=== PATIENT | female | born 1955 | race Caucasian/White ===

== ENCOUNTER 2018-12-20 15:48 | Inpatient (IN) | payer OTHER, SELFPAY ==
[2018-12-20 17:40] LABS: #Lymphocytes 0.5 thou/uL (1.20-3.40); #Monocytes 0.2 thou/uL (0.11-0.59); #Neutrophils 5.8 thou/uL (1.40-6.50); %Basophils 0.1 % (0.0-1.0); %Eosinophils 0.2 % (0.0-10.0); %Lymphocytes 7.7 % (21.0-51.0); Hemoglobin 17.1 g/dL (12.0-16.0); Mean Corpuscular HGB CONC 32.7 g/dL (32.0-36.0); Mean Corpuscular Hemoglobin 34.6 pg (27.0-31.0); Mean Platelet Volume 7.7 fL (7.4-10.4); Platelet Count 172 thou/uL (130-400); Red Blood Cell (RBC) Count 4.94 mill/uL (4.20-5.40); White Blood Cell (WBC) Count 6.5 thou/uL (4.8-10.8)
[2018-12-20 18:03] LABS: ALT (SGPT) 37 U/L (8-55); AST (SGOT) 58 U/L (5-34); Alkaline Phosphatase 96 U/L (40-110); Anion Gap 21 mmol/L (10-20); BUN (Urea Nitrogen) 19 mg/dL (9.8-20.1); Bilirubin, Total 2.3 mg/dL (0.2-1.2); Calc. Creatinine Clearance 0 mL/min (70-130); Calcium 9.4 mg/dL (7.8-10.44); Carbon Dioxide 18 mmol/L (23-31); Chloride 96 mmol/L (98-107); Estimated GFR-MDRD 43; Globulin 3.6 g/dL (2.4-3.5); Glucose 115 mg/dL (80-115); Magnesium 1.8 mg/dL (1.6-2.6); Potassium 4.9 mmol/L (3.5-5.1); Protein, Total 7.6 g/dL (6.0-8.3); Sodium 130 mmol/L (136-145)
[2018-12-20 18:28] LABS: CKMB 6.1 ng/mL (0-6.6)
[2018-12-20] MEDS ORDERED: Calcium Carbonate 500 MG ChewTAB PO PRN (19:30)
[2018-12-20] MEDS ORDERED: Ondansetron ODT 4 MG TAB PO PRN (19:30)
[2018-12-20] MEDS ORDERED: Ondansetron PF 4 MG/2 ML Vial IVP PRN (19:30)
--- NOTE | 2018-12-20 20:04 | HP ---
PRIMARY CARE PHYSICIAN: None. CHIEF COMPLAINT: Shortness of breath. The patient is a transfer from [facility]. HISTORY OF PRESENT ILLNESS: The patient is a 63-year-old female with hypertension, alcoholism, and noncompliance presented to [facility] with shortness of breath. The shortness of breath has been ongoing for past few weeks. She also noticed significant abdominal distention along with bilateral lower extremity swelling. She was unable to lie down flat. She also had some cough, which was essentially dry. No chest pain, palpitations, lightheadedness, dizziness, or syncope reported. Her symptoms progressively got worse over the last 2 to 4 weeks. The patient was admitted at [facility] as observation. There are no records from [facility]. However, was told by the ER physician that she was found to have atrial fibrillation for which she was started on apixaban. She was also started on IV Bumex for shortness of breath. No other records available from [facility]. The patient was sent to the emergency room from the hospital. Please note that patient was admitted at that facility as observation. PAST MEDICAL HISTORY: Hypertension. She does not take any medications. She used to be on antihypertensives in the past. PAST SURGICAL HISTORY: 1. Right knee surgery after a skiing accident. 2. Bunion surgery. ALLERGIES: THE PATIENT IS ALLERGIC TO PROCAINE. CURRENT HOME MEDICATIONS: Reviewed with the patient and none. The patient received apixaban, aspirin, Bumex, metoprolol, potassium, lactulose, folic acid at the [facility]. SOCIAL HISTORY: The patient currently lives at home with her family. She denies any drug use. She smokes one pack a day. She drinks 2 mixed drinks every night. FAMILY HISTORY: Negative for premature coronary artery disease. REVIEW OF SYSTEMS: All other review of systems was reviewed and was found negative. PHYSICAL EXAMINATION: VITAL SIGNS: Temperature 97.7, respirations of 26, pulse rate of 90 with a blood pressure of 130/98 with O2 saturation 93% on room air. GENERAL: A 63-year-old female in minimal respiratory distress at rest. HEENT: Head; atraumatic and normocephalic. Sclerae anicteric. Moist mucous membranes. No oral lesion. NECK: Supple. JVD not appreciated due to body habitus. No carotid bruit. LUNGS: Show diminished air entry at bilateral bases with rales at bases. There is expiratory wheezing with minimal accessory muscle use. HEART: S1 and S2 present. Irregularly irregular. 2/6 systolic murmur over the mitral area. ABDOMEN: Tense. Bowel sounds present. Distended. No guarding or rigidity. There was shifting dullness. EXTREMITIES: 3+ edema in bilateral lower extremity. No calf tenderness. SKIN: Warm and dry. LYMPH NODES: No palpable lymph nodes in the neck. PERIPHERAL VASCULAR: Radial pulses palpable bilaterally. MUSCULOSKELETAL: No joint swelling tenderness. NEUROLOGIC: Grossly nonfocal. Moves all 4 extremities. PSYCHIATRY: Alert, awake, oriented x3. LABORATORY FINDINGS: EKG by my review showed atrial fibrillation with nonspecific ST-T wave changes. CBC showed WBC 6.5 with hemoglobin 17.1, hematocrit 52.2, platelet 172. Chemistry showed sodium 130, potassium 4.9, chloride 96, bicarb 18, BUN 19, creatinine 1.25, total bilirubin 2.3. Troponin of 0.058. BNP of 1774. No chest x-ray available from [facility]. IMPRESSION: 1. Congestive heart failure, new onset with exacerbation along with new-onset atrial fibrillation. 2. Symptomatic ascites, suspected to be secondary to #1, rule out cirrhosis. 3. Chronic alcoholism with abnormal LFTs. 4. Chronic kidney disease, stage 3 versus acute kidney injury. 5. Hyponatremia. 6. Macrocytosis. 7. Suspected sleep apnea. 8. Tobacco dependence. 9. Elevated troponin secondary to congestive heart failure/type 2 myocardial infarction. 10. Hypertension, noncompliant with medications. PLAN: The patient will be monitored on the telemetry unit. We will start her on Lovenox 1 mg b.i.d. We will add fluid restriction. We will get ultrasound of the abdomen. IV diuretics. Echocardiogram will be obtained. We will consult cardiac rehab. Nebulizer treatment as needed. Plan of care was discussed with the patient in detail. She stated understanding. Job ID: [id number] MTDD
[2018-12-20] MEDS: Carvedilol 6.25 MG TAB PO SCH (21:28)
[2018-12-20] MEDS: Atorvastatin Calcium 10 MG TAB PO SCH (21:28)
[2018-12-20] MEDS: Senokot S 8.6-50 MG TAB PO SCH (21:31)
[2018-12-20] MEDS: Furosemide 40 MG/4 ML VIAL SLOW IVP SCH (21:31)
[2018-12-20 21:36] VITALS: BMI 34.4
[2018-12-20] MEDS: Enoxaparin Sodium 120 MG/0.8 ML SYRINGE SC SCH (22:36)
[2018-12-20] MEDS: Famotidine 20 MG TAB PO SCH (22:36)
[2018-12-21] MEDS: Furosemide 40 MG/4 ML VIAL SLOW IVP SCH ×2 (05:12→15:13)
[2018-12-21 06:25] LABS: Hemoglobin A1c 6.2 % (4.0-6.0)
[2018-12-21 06:48] LABS: ALT (SGPT) 34 U/L (8-55); AST (SGOT) 46 U/L (5-34); Albumin 3.6 g/dL (3.4-4.8); Alkaline Phosphatase 81 U/L (40-110); Anion Gap 16 mmol/L (10-20); BUN (Urea Nitrogen) 22 mg/dL (9.8-20.1); Calc. Creatinine Clearance 84 mL/min (70-130); Carbon Dioxide 25 mmol/L (23-31); Cardiac Risk 5.2 (Less than 4.5); Chloride 95 mmol/L (98-107); Cholesterol 103 mg/dl (< 200 Desired); Estimated GFR-MDRD 45; Globulin 3.2 g/dL (2.4-3.5); Glucose 97 mg/dL (80-115); HDL Cholesterol 20 mg/dL (>60 Neg Risk); LDL Cholesterol, Calculated 70 mg/dL; Magnesium 1.8 mg/dL (1.6-2.6); Phosphorus 4.8 mg/dL (2.3-4.7); Potassium 4.4 mmol/L (3.5-5.1); Protein, Total 6.8 g/dL (6.0-8.3); Sodium 132 mmol/L (136-145); Triglycerides 66 mg/dL (Less than 150)
[2018-12-21 06:57] LABS: Digoxin Less than 0.15 ng/mL (0.8-2.0)
--- NOTE | 2018-12-21 08:33 | RAD ---
PA AND LATERAL CHEST: HISTORY: Shortness of breath and CHF. COMPARISON: Exam from the previous day. FINDINGS: The heart is enlarged. Bilateral pleural effusions, left greater than right, are again seen. Mild pro minence of the pulmonary vascularity is noted. No pneumothoraces are seen. IMPRESSION: Stable examination. POS: MADDIE
[2018-12-21] MEDS: Aspirin 81 mg Enteric Coated Tablet PO SCH (08:57)
[2018-12-21] MEDS: Carvedilol 6.25 MG TAB PO SCH ×2 (08:57→22:28)
[2018-12-21] MEDS: Famotidine 20 MG TAB PO SCH ×2 (08:58→22:29)
[2018-12-21] MEDS: Lisinopril 5 MG TAB PO SCH (08:58)
[2018-12-21] MEDS: Senokot S 8.6-50 MG TAB PO SCH ×2 (08:59→22:28)
--- NOTE | 2018-12-21 09:08 | ULT ---
ABDOMINAL ULTRASOUND COMPLETE: Date: 12/21/18 HISTORY: Ascites and elevated LFTs. FINDINGS: Liver echogenicity is very coarse with a nodular appearing liver raising concern for cirrhosis. Exten sive gallstones and shadowing debris within the gallbladder, with gallbladder wall thickening. Primar jenny right upper quadrant minimal ascites. Bilateral pleural effusions. No focal liver mass. Visualize d pancreas, IVC, aorta, and spleen are unremarkable. The kidneys are unremarkable without hydronephro sis. IMPRESSION: 1. Very abnormal liver echotexture with some nodularity. 2. Multiple shadowing stones within the gallbladder with minimal gallbladder wall thickening, which could potentially be related to the ascites. Negative Cancino's sign. Common bile duct 0.4 cm. 3. Small bilateral pleural effusions. POS: TPC
[2018-12-21] MEDS: Multivit, Therapeutic 1 TAB PO SCH (11:00)
[2018-12-21] MEDS: Folic Acid 1 MG TAB PO SCH (11:00)
[2018-12-21] MEDS: Thiamine 100 MG TAB PO SCH (11:00)
[2018-12-21] MEDS: Enoxaparin Sodium 120 MG/0.8 ML SYRINGE SC SCH ×2 (12:00→22:30)
--- NOTE | 2018-12-21 12:09 | PDOC.HOSPP ---
- Subjective Encounter Date: 12/21/18 Encounter Time: 10:30 Subjective: Patient seen and examined for new onset CHF. SOB same. No CP or palpitations. No other complaints. No overnight events - Objective Vital Signs & Weight: Vital Signs (12 hours) Temp Pulse Resp BP BP Pulse Ox 12/21/18 08:58 88 110/75 12/21/18 08:57 110/75 12/21/18 08:35 97.2 F L 74 22 H 105/80 98 12/21/18 04:09 97.3 F L 88 18 110/75 99 Weight Weight 246 lb 4.8 oz I&O: 12/20/18 12/21/18 12/22/18 06:59 06:59 06:59 Intake Total 450 Output Total 950 Balance -500 Result Diagrams: 12/20/18 17:20 12/21/18 05:17 Radiology Reviewed by me: Yes (CXR - Pleural effusion) EKG Reviewed by me: Yes (Tele Afib) Hospitalist ROS - Review of Systems Constitutional: denies: fever, chills, sweats, weakness, malaise, other Gastrointestinal: denies: nausea, vomiting, abdominal pain, diarrhea, constipation, melena, hematochezia, other - Medication Medications: Active Medications Generic Name Dose Route Start Last Admin Trade Name Freq PRN Reason Stop Dose Admin Aspirin 81 mg 12/21/18 09:00 12/21/18 08:57 Ecotrin PO 81 mg DAILY ERIN Administration Atorvastatin Calcium 10 mg 12/20/18 21:00 12/20/18 21:28 Lipitor PO 10 mg HS ERIN Administration Carvedilol 6.25 mg 12/20/18 21:00 12/21/18 08:57 Coreg PO 6.25 mg BID ERIN Administration Enoxaparin Sodium 110 mg 12/20/18 22:00 12/20/18 22:36 Lovenox SC 110 mg 1000,2200 ERIN Administration Famotidine 20 mg 12/20/18 21:00 12/21/18 08:58 Pepcid PO 20 mg BID ERIN Administration Furosemide 40 mg 12/20/18 22:00 12/21/18 05:12 Lasix SLOW IVP 40 mg Q8HR ERIN Administration Lisinopril 5 mg 12/21/18 09:00 12/21/18 08:58 Zestril PO 5 mg DAILY ERIN Administration Senna/Docusate Sodium 2 tab 12/20/18 21:00 12/21/18 08:59 Senokot S PO 2 tab BID ERIN Administration Sodium Chloride 10 ml 12/20/18 19:30 12/21/18 05:12 Flush - Normal Saline IVF 10 ml PRN PRN Administration Saline Flush - Exam General Appearance: NAD (at rest) Heart: no gallops, no rubs, irregular Heart - other findings: no heaves/pulsations Respiratory: normal chest expansion, rales, rhonchi Respiratory - other findings: dec AE at bases Gastrointestinal: soft, no guarding, no rigidity, distended Extremities: no cyanosis, 2+ LE edema Hosp A/P - Plan IMPRESSION: 1.New onset CHF exacerbation/new-onset A fib. 2. Symptomatic ascites, suspected to be secondary to #1, rule out cirrhosis. 3. Chronic alcoholism with abnormal LFTs. 4. CKD 3. 5. Hyponatremia. 6. Macrocytosis. 7. Suspected sleep apnea. 8. Tobacco dependence. 9. Elevated troponin secondary to congestive heart failure/type 2 [place]. 10. Hypertension, noncompliant with medications. PLAN: Cont IV diuretics Cont Lovenox Await Echo and Abd USG Cont Coreg Cont Lisinopril AM labs
--- NOTE | 2018-12-21 18:49 | CON ---
DATE OF CONSULTATION: 12/21/2018 REASON FOR CONSULTATION: Heart failure. HISTORY OF PRESENT ILLNESS: Ms. Peralta is a pleasant 63-year-old white female who comes to the hospital for shortness of breath. She states that for the last 4 weeks, she has been progressively getting more short-winded, to the point where she could not even lay flat, she could not breathe well even at rest. She decided to come in and was found to be in heart failure with ascites, lower extremity edema, and crackles. She was given IV Lasix and is already feeling much better. Still cannot lay flat on her back without feeling short-winded, but can get much flatter than before and feels more comfortable. She denies any chest pain, tightness, or pressure. She comes from the [facility]. Apparently, she was given a dose of apixaban as she has been in atrial fibrillation as well. She has never been told she has any heart problems in the past. She has never been told she has atrial fibrillation either. PAST MEDICAL HISTORY: Includes; 1. Hypertension. 2. Noncompliance. She states she was given blood pressure medication several years ago. She took them for a few months and then she states that the blood pressure has been high and low, so she has decided to stop taking them. When she says high, she means in the 170s and 180s and when she says low, she means in the 140s. PAST SURGICAL HISTORY: 1. Right knee surgery. 2. Bunionectomy. OUTPATIENT MEDICATIONS: None. MEDICATIONS GIVEN: At the [facility], include: 1. Eliquis. 2. Aspirin. 3. Bumex. 4. Metoprolol. 5. Potassium. 6. Lactulose. 7. Folic acid. ALLERGIES: PROCAINE. SOCIAL HISTORY: She smokes a pack a day, and she drinks 2 mixed drinks every evening. No drug use. FAMILY HISTORY: No early coronary artery disease. REVIEW OF SYSTEMS: A 12-point review of systems was done and was all negative unless stated in the History of Present Illness. PHYSICAL EXAMINATION: VITAL SIGNS: Temperature 97.7, pulse 84, respiratory rate 19, saturation is 93% on 2 L, and blood pressure 112/76. GENERAL: Awake, alert, and oriented x3. No distress. HEENT: Normocephalic, atraumatic. NECK: Supple. LUNGS: Clear. CARDIOVASCULAR: S1 and S2. No S3 or S4. There is a grade 2/6 systolic murmur at the right upper sternal border. ABDOMEN: Soft. EXTREMITIES: 2+ edema. SKIN: Warm and dry. LABORATORY DATA: Laboratory work was reviewed. CBC with a white count of 6, hemoglobin of 17, hematocrit of 52, and platelet count of 172. Chemistries with a sodium of 132, potassium of 4.4, BUN 22, creatinine 1.22, GFR of 45. Hemoglobin A1c is 6.2, phosphorus of 4.8, total bilirubin at 2.0, AST of 46, ALT of 34. Troponin was 0.05, it is in the indeterminate range. BNP was 1774. Albumin of 3.6. TSH was normal. Triglycerides of 66, cholesterol 103, LDL of 70, HDL of 20. Digoxin level was undetectable. Chest x-ray was reviewed. ASSESSMENT: 1. Acute on chronic systolic heart failure. 2. New onset dilated cardiomyopathy. 3. Ejection fraction of left ventricular systolic function at 20% to 25%, with 4-chamber dilatation. 4. Atrial fibrillation, rate controlled, new diagnosis. 5. Tobacco and alcohol use. PLAN: 1. Continues to be volume overloaded, unable to lay flat for too long. 2. We will need continued IV diuresis for now. 3. If her creatinine starts to go up, we will need to be in imminent top of this to try to help forward flow. 4. She will need a heart catheterization in the next few days. She received a dose of Eliquis yesterday, so she would be ready by Wednesday. However, most likely, we will do this on Wednesday, try to dry her up a little bit more in the next couple of days. 5. Once her blood pressure allows, we will plan on starting Entresto and beta-jairo. Currently, blood pressure is borderline low. Thank you for letting us to participate in the care of your patient. We will follow. Job ID: [id number]
[2018-12-21] MEDS: Atorvastatin Calcium 10 MG TAB PO SCH (22:29)
[2018-12-22 05:02] LABS: #Basophils 0.1 thou/uL (0.0-0.2); #Monocytes 0.5 thou/uL (0.11-0.59); %Basophils 1.1 % (0.0-1.0); %Eosinophils 0.1 % (0.0-10.0); %Lymphocytes 21.5 % (21.0-51.0); %Monocytes 11.6 % (0.0-10.0); %Neutrophils 65.7 % (42.0-75.0); Hemoglobin 15.3 g/dL (12.0-16.0); Mean Corpuscular HGB CONC 33.1 g/dL (32.0-36.0); Mean Corpuscular Hemoglobin 35.5 pg (27.0-31.0); Mean Platelet Volume 7.5 fL (7.4-10.4); Platelet Count 146 thou/uL (130-400); RBC Distribution Width 13.6 % (11.5-14.5); White Blood Cell (WBC) Count 4.6 thou/uL (4.8-10.8)
[2018-12-22 05:27] LABS: ALT (SGPT) 36 U/L (8-55); AST (SGOT) 41 U/L (5-34); Albumin 3.2 g/dL (3.4-4.8); Alkaline Phosphatase 68 U/L (40-110); Anion Gap 14 mmol/L (10-20); BUN (Urea Nitrogen) 26 mg/dL (9.8-20.1); Bilirubin, Total 1.7 mg/dL (0.2-1.2); Calc. Creatinine Clearance 91 mL/min (70-130); Calcium 8.6 mg/dL (7.8-10.44); Carbon Dioxide 27 mmol/L (23-31); Chloride 95 mmol/L (98-107); Estimated GFR-MDRD 49; Globulin 3.2 g/dL (2.4-3.5); Glucose 79 mg/dL (80-115); Potassium 3.9 mmol/L (3.5-5.1); Protein, Total 6.4 g/dL (6.0-8.3); Sodium 132 mmol/L (136-145)
[2018-12-22] MEDS: Furosemide 40 MG/4 ML VIAL SLOW IVP SCH ×2 (05:42→14:07)
[2018-12-22] MEDS: Aspirin 81 mg Enteric Coated Tablet PO SCH (08:27)
[2018-12-22] MEDS: Carvedilol 6.25 MG TAB PO SCH ×2 (08:27→20:57)
[2018-12-22] MEDS: Lisinopril 5 MG TAB PO SCH (08:28)
[2018-12-22] MEDS: Folic Acid 1 MG TAB PO SCH (08:28)
[2018-12-22] MEDS: Famotidine 20 MG TAB PO SCH ×2 (08:28→20:58)
[2018-12-22] MEDS: Multivit, Therapeutic 1 TAB PO SCH (08:28)
[2018-12-22] MEDS: Thiamine 100 MG TAB PO SCH (08:29)
[2018-12-22] MEDS: Senokot S 8.6-50 MG TAB PO SCH ×2 (08:29→20:58)
[2018-12-22] MEDS: Enoxaparin Sodium 120 MG/0.8 ML SYRINGE SC SCH ×2 (09:57→20:58)
--- NOTE | 2018-12-22 15:52 | PRG ---
DATE OF SERVICE: 12/22/2018 SUBJECTIVE: The patient is seen and examined at the bedside. She is in feeling significantly better, although still tired and having some shortness of breath. OBJECTIVE: VITAL SIGNS: Blood pressure is 105/74, pulse is 73, temperature 97.9, respirations 16, O2 saturation is 93% on 2 L by nasal cannula. HEENT: Head is atraumatic and normocephalic. Eyes are PERRLA. Sclerae are nonicteric. Oral mucosa is moist. NECK: Supple. LUNGS: Breath sounds diminished at both bases with dullness on percussion at both bases. HEART: S1, S2, somewhat distant. No S3. No S4. Somewhat irregular. ABDOMEN: Obese, nontender. EXTREMITIES: 2+ peripheral edema similar bilaterally. NEUROLOGICAL EXAMINATION: She is alert and oriented x4. There is no any motor deficits. LABORATORY DATA: Labs showed white count of 4.6, hemoglobin 15.3, hematocrit 46.1, platelet count is 146,000. Sodium is 132, potassium 3.9, chloride 95, CO2 26, creatinine 1.13, total bilirubin 1.7, AST 41, ALT 36, alkaline phosphatase 68, albumin 3.2. The rest of chemistry is within normal limits. Echocardiogram showed LVEF estimated at 20% to 25% with global hypokinesis, dilated RV with reduced RV systolic function, moderately dilated left atrium, moderately enlarged right atrium, moderate to severe mitral regurgitation, dilated aortic root at 4, and small pericardial effusion without tamponade. IMPRESSION: 1. New onset congestive heart failure exacerbation with new onset of atrial fibrillation. 2. Symptomatic ascites, rule out cirrhosis. 3. Hyponatremia, most likely related to congestive heart failure. 4. Sleep apnea, on CPAP at home. 5. Tobacco dependence. 6. Chronic alcoholism. 7. Hypertension. 8. Chronic kidney disease, stage 3. 9. Myocardial infarction type 2. PLAN: Continue current regimen, which includes IV Lasix, carvedilol, full dose of Lovenox 1 mg/kg subcutaneously every 12 hours; ROSY inhibitor, which is lisinopril; statin, which is Lipitor, and aspirin. Job ID: [id number]
--- NOTE | 2018-12-22 18:53 | PDOC.CPN ---
- Subjective Date: 12/22/18 Time: 18:50 Interval history: She is diuresing well. She is breathing better but still unable to lay flat for longer than 10 or 15 minutes. - Review of Systems General: denies: fever/chills, weight/appetite/sleep changes, night sweats, fatigue Respiratory: reports: shortness of breath. denies: cough, congestion, exercise intolerance Cardiovascular: reports: edema. denies: chest pain, palpitation, paroxysmal nocturnal dyspnea, orthopnea Gastrointestinal: denies: nausea, vomiting, diarrhea, constipation, abd pain, GI bleeding Musculoskeletal: denies: pain, tenderness, stiffness, swelling, arthritis/ arthralgias Neurological: denies: numbness, syncope, seizure, weakness - Objective Allergies/Adverse Reactions: Allergies Allergy/AdvReac Type Severity Reaction Status Date / Time procaine [From Novocain] Allergy Severe Swollen Verified 12/20/18 20:07 Lips Visit Medications: Current Medications Albuterol/Ipratropium (Duoneb) 3 ml NEB Q4H PRN PRN Reason: SOB &/or Wheezing Aspirin (Ecotrin) 81 mg PO DAILY [facility] Last Admin: 12/22/18 08:27 Dose: 81 mg Atorvastatin Calcium (Lipitor) 10 mg PO HS [facility] Last Admin: 12/21/18 22:29 Dose: 10 mg Calcium Carbonate (Tums) 1,000 mg PO Q4H PRN PRN Reason: Heartburn or Indigestion Carvedilol (Coreg) 6.25 mg PO BID [facility] Last Admin: 12/22/18 08:27 Dose: 6.25 mg Enoxaparin Sodium (Lovenox) 110 mg SC 1000,2200 [facility] Last Admin: 12/22/18 09:57 Dose: 110 mg Famotidine (Pepcid) 20 mg PO BID [facility] Last Admin: 12/22/18 08:28 Dose: 20 mg Folic Acid (Folvite) 1 mg PO DAILY [facility] Last Admin: 12/22/18 08:28 Dose: 1 mg Furosemide (Lasix) 40 mg SLOW IVP 0600,1400 [facility] Last Admin: 12/22/18 14:07 Dose: 40 mg Lisinopril (Zestril) 5 mg PO DAILY [facility] Last Admin: 12/22/18 08:28 Dose: 5 mg Multivitamins (Theragran) 1 tab PO DAILY [facility] Last Admin: 12/22/18 08:28 Dose: 1 tab Ondansetron HCl (Zofran Odt) 4 mg PO Q6H PRN PRN Reason: Nausea/Vomiting Ondansetron HCl (Zofran) 4 mg IVP Q6H PRN PRN Reason: Nausea/Vomiting Senna/Docusate Sodium (Senokot S) 2 tab PO BID [facility] Last Admin: 12/22/18 08:29 Dose: 2 tab Sodium Chloride (Flush - Normal Saline) 10 ml IVF PRN PRN PRN Reason: Saline Flush Last Admin: 12/21/18 05:12 Dose: 10 ml Thiamine HCl (Thiamine) 100 mg PO DAILY [facility] Last Admin: 12/22/18 08:29 Dose: 100 mg Vital Signs & Weight: Vital Signs Temp Pulse Pulse Pulse Resp BP BP 12/22/18 15:05 97.0 F L 77 16 12/22/18 11:23 63 76 105/74 137/72 12/22/18 11:10 97.9 F 73 16 12/22/18 07:30 97.8 F 61 16 BP BP Pulse Ox Pulse Ox Pulse Ox 12/22/18 15:05 98/67 92 L 12/22/18 11:23 95 100 12/22/18 11:10 105/74 93 L 12/22/18 07:30 117/94 H 98 Weight 244 lb 6.4 oz - Physical Exam General: alert & oriented x3, no apparent distress HEENT: mucus membranes moist Neck: supple neck, JVD/HJR Cardiac: regular rate and rhythm, no murmur Lungs: bibasilar rales Neuro: grossly intact Abdomen: active bowel sounds, soft, non-tender Extremities: no cyanosis, no clubbing, 1+ LE edema Skin: clear Musculoskeletal: no pain - Labs Result Diagrams: 12/22/18 04:41 12/22/18 04:41 Troponin/CKMB CK-MB (CK-2) 6.1 ng/mL (0-6.6) 12/20/18 17:19 Troponin I 0.058 ng/mL (< 0.028) H 12/20/18 17:19 - Telemetry Sinus rhythms and dysrhythmias: sinus rhythm - Assessment/Plan Assessment/Plan: 1. Acute systolic heart failure 2. Dilated CM new onset, EF at 20-25% 3. Afib rate controlled, new diagnosis 4. Tobacco use. 5. CHADS VASc score of 2 (female, heart failure) PLAN: - Counselled on cessation of both alcohol and tobacco. - Continue diuresis. - Plan on doing LHC once able to lay flat. Likely wednesday. - Continue full dose lovenox for stroke prophylaxis. - Continue BB and ACEI. Cannot up titrate due to borderline low BP.
[2018-12-22] MEDS: Atorvastatin Calcium 10 MG TAB PO SCH (20:58)
[2018-12-23] MEDS: Furosemide 40 MG/4 ML VIAL SLOW IVP SCH ×2 (05:17→13:43)
[2018-12-23] MEDS: Carvedilol 6.25 MG TAB PO SCH ×2 (09:42→20:45)
[2018-12-23] MEDS: Aspirin 81 mg Enteric Coated Tablet PO SCH (09:42)
[2018-12-23] MEDS: Famotidine 20 MG TAB PO SCH ×2 (09:43→20:46)
[2018-12-23] MEDS: Lisinopril 5 MG TAB PO SCH (09:43)
[2018-12-23] MEDS: Folic Acid 1 MG TAB PO SCH (09:43)
[2018-12-23] MEDS: Multivit, Therapeutic 1 TAB PO SCH (09:44)
[2018-12-23] MEDS: Thiamine 100 MG TAB PO SCH (09:44)
[2018-12-23] MEDS: Senokot S 8.6-50 MG TAB PO SCH ×2 (09:44→09:45)
[2018-12-23] MEDS: Enoxaparin Sodium 120 MG/0.8 ML SYRINGE SC SCH ×2 (09:46→20:46)
--- NOTE | 2018-12-23 10:59 | PRG ---
DATE OF SERVICE: 12/23/2018 SUBJECTIVE: The patient is seen and examined at the bedside. The patient's friend and her are present in the room during my visit. She feels significantly better. OBJECTIVE: VITAL SIGNS: Blood pressure is 108/62, pulse is 82, respiratory rate is 18, O2 saturation is 96% on 2 L by nasal cannula, and her temperature is 98. HEENT: Head is atraumatic and normocephalic. Eyes, noticed some bulge bilaterally and conjunctivae pinkish. Oral mucosa is moist. NECK: Supple. LUNGS: Breath sounds diminished with bilateral crackles at both bases. HEART: S1-S2, normal. No S3. No S4. Irregularly irregular. ABDOMEN: Soft, nontender, and obese. EXTREMITIES: 1 to 2+ peripheral edema similar bilaterally on both lower extremities. NEUROLOGICAL: She is alert and oriented x4. There is no any motor or sensory deficits present. Cranial nerves are intact. LABORATORY DATA: Pending. IMPRESSION: 1. New onset atrial fibrillation with rapid ventricular rate, rate controlled at this point. 2. Symptomatic ascites, rule out cirrhosis. 3. Hyponatremia, most likely related to congestive heart failure. 4. Congestive heart failure, most likely systolic and diastolic. 5. Sleep apnea, on CPAP at night. 6. Tobacco dependence. 7. Chronic alcoholism. 8. Hypertension. 9. Chronic kidney disease stage 3. 10. Myocardial infarction type 2. 11. Suspicion of hyperparathyroidism. PLAN: Check her free T3 and free T4. Continue IV diuretics. Continue ROSY inhibitor and beta-jairo. Continue statin and aspirin. Continue full dose of Lovenox, and she is responding well to diuresis. She should be ready for cardiac catheterization on Wednesday. Job ID: [id number]
[2018-12-23 11:43] LABS: Anion Gap 14 mmol/L (10-20); BUN (Urea Nitrogen) 19 mg/dL (9.8-20.1); Calc. Creatinine Clearance 105 mL/min (70-130); Calcium 9.3 mg/dL (7.8-10.44); Carbon Dioxide 32 mmol/L (23-31); Chloride 92 mmol/L (98-107); Estimated GFR-MDRD 60; Glucose 107 mg/dL (80-115); Magnesium 1.7 mg/dL (1.6-2.6); Potassium 3.9 mmol/L (3.5-5.1); Sodium 134 mmol/L (136-145)
[2018-12-23 12:10] LABS: Free T4 (Free Thyroxine) 0.77 ng/dL (0.70-1.48)
[2018-12-23] MEDS: Atorvastatin Calcium 10 MG TAB PO SCH (20:46)
[2018-12-24] MEDS: Furosemide 40 MG/4 ML VIAL SLOW IVP SCH ×2 (05:09→14:41)
[2018-12-24 06:15] LABS: Anion Gap 15 mmol/L (10-20); BUN (Urea Nitrogen) 11 mg/dL (9.8-20.1); Calc. Creatinine Clearance 110 mL/min (70-130); Calcium 8.9 mg/dL (7.8-10.44); Carbon Dioxide 29 mmol/L (23-31); Chloride 93 mmol/L (98-107); Estimated GFR-MDRD 63; Glucose 81 mg/dL (80-115); Potassium 5.2 mmol/L (3.5-5.1); Sodium 132 mmol/L (136-145)
[2018-12-24] MEDS: Famotidine 20 MG TAB PO SCH ×2 (09:15→20:17)
[2018-12-24] MEDS: Lisinopril 5 MG TAB PO SCH (09:15)
[2018-12-24] MEDS: Senokot S 8.6-50 MG TAB PO SCH ×2 (09:16→20:17)
[2018-12-24] MEDS: Folic Acid 1 MG TAB PO SCH (09:17)
[2018-12-24] MEDS: Multivit, Therapeutic 1 TAB PO SCH (09:17)
[2018-12-24] MEDS: Carvedilol 6.25 MG TAB PO SCH ×2 (09:17→20:15)
[2018-12-24] MEDS: Thiamine 100 MG TAB PO SCH (09:17)
[2018-12-24] MEDS: Aspirin 81 mg Enteric Coated Tablet PO SCH (09:17)
[2018-12-24] MEDS: Enoxaparin Sodium 120 MG/0.8 ML SYRINGE SC SCH ×2 (09:22→20:15)
--- NOTE | 2018-12-24 12:48 | PRG ---
DATE OF SERVICE: 12/24/2018 SUBJECTIVE: Patient is seen and examined at the bedside. She is feeling significantly better. She is able to sleep and lie flat in the bed. Shortness of breath improved. OBJECTIVE: VITAL SIGNS: Blood pressure is 111/82, pulse is 75, temperature 98.1, respirations 14, O2 saturation is 96% on room air. Her urine output is 1900 mL for the last 24 hours. Her last weight from yesterday is down to 236 pounds and 12 ounces. HEENT: Her head is atraumatic and normocephalic. Eyes are PERRLA. Sclerae are nonicteric. Oral mucosa is moist. NECK: Supple. LUNGS: Breath sounds diminished at both bases with some crackles at both bases, but improved. HEART: S1 and S2. Irregularly irregular. No S3. No S4. ABDOMEN: Soft, nontender. Bowel sounds are present. No organomegaly but there is most likely some ascites present. EXTREMITIES: 2+ peripheral edema similar bilaterally still persistent. NEUROLOGIC: She is alert and oriented x4. LABORATORY DATA: Labs showed sodium of 132, potassium 5.2, chloride 93, CO2 of 29, BUN 11, creatinine 0.9, glucose is 81, calcium 8.9. IMPRESSION: 1. New onset atrial fibrillation with rapid ventricular rate, rate controlled at this point. 2. Symptomatic ascites, improved. 3. Hyponatremia, most likely related to congestive heart failure. 4. Congestive heart failure. Echocardiogram was done and it showed LVEF down to 20% to 25% and multiple valvular problems. 5. Sleep apnea, on CPAP at night. 6. Tobacco dependence. 7. Chronic alcoholism. 8. Hypertension. 9. Chronic kidney disease stage 3. 10. Myocardial infarction type 2. 11. Suspicion of hyperthyroidism, which was ruled out with normal free T3 and free T4. PLAN: Plan is to continue diuresis. We see improvement daily. Continue her full dose of Lovenox and she should be ready to have cardiac catheterization done on Wednesday. Job ID: [id number]
--- NOTE | 2018-12-24 15:47 | EKG ---
Test Reason : Blood Pressure : / mmHG Vent. Rate : 088 BPM Atrial Rate : 416 BPM P-R Int : 000 ms QRS Dur : 096 ms QT Int : 360 ms P-R-T Axes : 000 -03 133 degrees QTc Int : 435 ms Atrial fibrillation Nonspecific T wave abnormality , probably digitalis effect Abnormal ECG Baseline Artifact Present Confirmed by MICHELINE VERNON ([id number]), manager editorial SUSAN JUSTIN ([id number] on 12/24/2018 3:47:15 PM Referred By: Confirmed By:MICHELINE VERNON
[2018-12-24] MEDS: Atorvastatin Calcium 10 MG TAB PO SCH (20:16)
[2018-12-25] MEDS: Furosemide 40 MG/4 ML VIAL SLOW IVP SCH ×2 (05:48→13:33)
[2018-12-25 08:02] LABS: Anion Gap 17 mmol/L (10-20); BUN (Urea Nitrogen) 12 mg/dL (9.8-20.1); Calc. Creatinine Clearance 127 mL/min (70-130); Calcium 9.3 mg/dL (7.8-10.44); Carbon Dioxide 30 mmol/L (23-31); Chloride 92 mmol/L (98-107); Estimated GFR-MDRD 77; Glucose 89 mg/dL (80-115); Potassium 3.9 mmol/L (3.5-5.1); Sodium 135 mmol/L (136-145)
[2018-12-25] MEDS: Senokot S 8.6-50 MG TAB PO SCH ×2 (09:52→20:46)
[2018-12-25] MEDS: Enoxaparin Sodium 120 MG/0.8 ML SYRINGE SC SCH ×2 (09:52→20:47)
[2018-12-25] MEDS: Famotidine 20 MG TAB PO SCH ×2 (09:53→20:47)
[2018-12-25] MEDS: Aspirin 81 mg Enteric Coated Tablet PO SCH (09:53)
[2018-12-25] MEDS: Lisinopril 5 MG TAB PO SCH (09:53)
[2018-12-25] MEDS: Carvedilol 6.25 MG TAB PO SCH ×2 (09:53→20:46)
[2018-12-25] MEDS: Multivit, Therapeutic 1 TAB PO SCH (09:53)
[2018-12-25] MEDS: Thiamine 100 MG TAB PO SCH (09:53)
[2018-12-25] MEDS: Folic Acid 1 MG TAB PO SCH (09:54)
--- NOTE | 2018-12-25 10:11 | PDOC.HOSPP ---
- Subjective Encounter Date: 12/25/18 Encounter Time: 09:00 Subjective: Feels better. No complaint. - Objective Vital Signs & Weight: Vital Signs (12 hours) Temp Pulse Resp BP BP Pulse Ox 12/25/18 08:00 98.0 F 72 16 146/89 H 96 12/25/18 04:05 97.7 F 73 14 102/73 96 Weight Weight 231 lb 12.8 oz I&O: 12/24/18 12/25/18 12/26/18 06:59 06:59 06:59 Intake Total 700 1800 Output Total 2958 5432 Balance -5768 -7705 Result Diagrams: 12/22/18 04:41 12/25/18 07:31 Hospitalist ROS - Medication Medications: Active Medications Generic Name Dose Route Start Last Admin Trade Name Freq PRN Reason Stop Dose Admin Aspirin 81 mg 12/21/18 09:00 12/25/18 09:53 Ecotrin PO 81 mg DAILY ERIN Administration Atorvastatin Calcium 10 mg 12/20/18 21:00 12/24/18 20:16 Lipitor PO 10 mg HS ERIN Administration Carvedilol 6.25 mg 12/20/18 21:00 12/25/18 09:53 Coreg PO 6.25 mg BID ERIN Administration Enoxaparin Sodium 110 mg 12/20/18 22:00 12/25/18 09:52 Lovenox SC 110 mg 1000,2200 ERIN Administration Famotidine 20 mg 12/20/18 21:00 12/25/18 09:53 Pepcid PO 20 mg BID ERIN Administration Folic Acid 1 mg 12/21/18 09:00 12/25/18 09:54 Folvite PO 1 mg DAILY ERIN Administration Furosemide 40 mg 12/22/18 06:00 12/25/18 05:48 Lasix SLOW IVP 40 mg 0600,1400 ERIN Administration Lisinopril 5 mg 12/21/18 09:00 12/25/18 09:53 Zestril PO 5 mg DAILY ERIN Administration Multivitamins 1 tab 12/21/18 09:00 12/25/18 09:53 Theragran PO 1 tab DAILY ERIN Administration Senna/Docusate Sodium 2 tab 12/20/18 21:00 12/25/18 09:52 Senokot S PO 2 tab BID ERIN Administration Sodium Chloride 10 ml 12/20/18 19:30 12/24/18 14:41 Flush - Normal Saline IVF 10 ml PRN PRN Administration Saline Flush Thiamine HCl 100 mg 12/21/18 09:00 12/25/18 09:53 Thiamine PO 100 mg DAILY ERIN Administration - Exam Neck: no JVD Heart: irregular Respiratory: CTAB Gastrointestinal: soft Extremities: no edema Neurological: no focal deficits Hosp A/P (1) Atrial fibrillation Code(s): I48.91 - UNSPECIFIED ATRIAL FIBRILLATION Status: Acute Plan: New onset.. On Lovenox. (2) CHF (congestive heart failure) Code(s): I50.9 - HEART FAILURE, UNSPECIFIED Status: Acute Plan: improving. EF of 20-30% (3) HTN (hypertension) Code(s): I10 - ESSENTIAL (PRIMARY) HYPERTENSION Status: Acute Plan: BP is fluctuating.. Continue current therapy. (4) ETOH abuse Code(s): F10.10 - ALCOHOL ABUSE, UNCOMPLICATED Status: Acute (5) Type 2 PR (myocardial infarction) Code(s): I21.A1 - MYOCARDIAL INFARCTION TYPE 2 Status: Acute Plan: Seen by cardiology. Possible cardiac cath tomorrow. (6) Hyponatremia Code(s): E87.1 - HYPO-OSMOLALITY AND HYPONATREMIA Status: Acute Plan: Secondary to CHF, improving.. - Plan Continue current therapy.. Possible cardiac cath tomorrow.
[2018-12-25] MEDS: Atorvastatin Calcium 10 MG TAB PO SCH (20:45)
[2018-12-26 05:32] LABS: Anion Gap 14 mmol/L (10-20); BUN (Urea Nitrogen) 11 mg/dL (9.8-20.1); Calc. Creatinine Clearance 120 mL/min (70-130); Calcium 9.5 mg/dL (7.8-10.44); Carbon Dioxide 35 mmol/L (23-31); Chloride 89 mmol/L (98-107); Estimated GFR-MDRD 72; Glucose 100 mg/dL (80-115); Potassium 4.7 mmol/L (3.5-5.1); Sodium 133 mmol/L (136-145)
[2018-12-26] MEDS: Furosemide 40 MG/4 ML VIAL SLOW IVP SCH (06:06)
--- NOTE | 2018-12-26 08:27 | PDOC.HOSPP ---
- Subjective Encounter Date: 12/26/18 Encounter Time: 08:25 non-verbal Subjective: much less sob, no chest pain. trial of lying supine - Objective Vital Signs & Weight: Vital Signs (12 hours) Temp Pulse Resp BP BP Pulse Ox 12/26/18 08:19 97 12/26/18 04:00 98.2 F 85 16 111/72 97 12/25/18 20:40 98.0 F 83 18 110/82 96 Weight Weight 227 lb 5 oz I&O: 12/25/18 12/26/18 12/27/18 06:59 06:59 06:59 Intake Total 1800 1300 Output Total 0433 0567 Balance -2374 -0913 Result Diagrams: 12/22/18 04:41 12/26/18 05:02 Hospitalist ROS - Medication Medications: Active Medications Generic Name Dose Route Start Last Admin Trade Name Freq PRN Reason Stop Dose Admin Aspirin 81 mg 12/21/18 09:00 12/25/18 09:53 Ecotrin PO 81 mg DAILY ERIN Administration Atorvastatin Calcium 10 mg 12/20/18 21:00 12/25/18 20:45 Lipitor PO 10 mg HS ERIN Administration Carvedilol 6.25 mg 12/20/18 21:00 12/25/18 20:46 Coreg PO 6.25 mg BID ERIN Administration Enoxaparin Sodium 110 mg 12/20/18 22:00 12/25/18 20:47 Lovenox SC 110 mg 1000,2200 ERIN Administration Famotidine 20 mg 12/20/18 21:00 12/25/18 20:47 Pepcid PO 20 mg BID ERIN Administration Folic Acid 1 mg 12/21/18 09:00 12/25/18 09:54 Folvite PO 1 mg DAILY ERIN Administration Furosemide 40 mg 12/22/18 06:00 12/26/18 06:06 Lasix SLOW IVP 40 mg 0600,1400 ERIN Administration Lisinopril 5 mg 12/21/18 09:00 12/25/18 09:53 Zestril PO 5 mg DAILY ERIN Administration Multivitamins 1 tab 12/21/18 09:00 12/25/18 09:53 Theragran PO 1 tab DAILY ERIN Administration Senna/Docusate Sodium 2 tab 12/20/18 21:00 12/25/18 20:46 Senokot S PO Not Given BID ERIN Sodium Chloride 10 ml 12/20/18 19:30 12/24/18 14:41 Flush - Normal Saline IVF 10 ml PRN PRN Administration Saline Flush Thiamine HCl 100 mg 12/21/18 09:00 12/25/18 09:53 Thiamine PO 100 mg DAILY ERIN Administration - Exam Neck: no JVD Heart: irregular Respiratory: CTAB Gastrointestinal: soft, normal bowel sounds Extremities: 1+ LE edema Hosp A/P (1) Acute systolic HF (heart failure) Code(s): I50.21 - ACUTE SYSTOLIC (CONGESTIVE) HEART FAILURE Status: Acute (2) Cardiomyopathy Code(s): I42.9 - CARDIOMYOPATHY, UNSPECIFIED Status: Acute Qualifiers: Cardiomyopathy type: unspecified Qualified Code(s): I42.9 - Cardiomyopathy , unspecified (3) Acute kidney failure Status: Resolved Qualifiers: Acute renal failure type: unspecified Qualified Code(s): N17.9 - Acute kidney failure, unspecified (4) Atrial fibrillation Code(s): I48.91 - UNSPECIFIED ATRIAL FIBRILLATION Status: Acute Qualifiers: Atrial fibrillation type: unspecified Qualified Code(s): I48.91 - Unspecified atrial fibrillation (5) HTN (hypertension) Code(s): I10 - ESSENTIAL (PRIMARY) HYPERTENSION Status: Chronic Qualifiers: Hypertension type: essential hypertension Qualified Code(s): I10 - Essential (primary) hypertension - Plan chf much improved, able to li flat discuss cardiac cath with Dr Esqueda
[2018-12-26] MEDS ORDERED: Verapamil 5 MG/2 ML VIAL ONE (10:25)
[2018-12-26] MEDS ORDERED: Nitroglycerin 100MG/250ML BOT 250 ML ONE (10:25)
[2018-12-26] MEDS ORDERED: Fentanyl 100 MCG/2 ML VIAL ONE (10:28)
[2018-12-26] MEDS ORDERED: Midazolam HCl 2 mg/2 ml Vial ONE (10:28)
[2018-12-26] MEDS ORDERED: TICAGRELOR 90 MG TABLET ONE (11:10)
[2018-12-26] MEDS ORDERED: Nitroglycerin 0.4 MG TAB (25 Tab Bottle) SL PRN (11:12)
[2018-12-26] MEDS ORDERED: Morphine 2 MG/ML SYRINGE SLOW IVP PRN (11:12)
[2018-12-26] MEDS: Carvedilol 6.25 MG TAB PO SCH ×3 (12:15→20:43)
[2018-12-26] MEDS: Aspirin 81 mg Enteric Coated Tablet PO SCH (12:15)
[2018-12-26] MEDS: Folic Acid 1 MG TAB PO SCH (12:16)
[2018-12-26] MEDS: Famotidine 20 MG TAB PO SCH ×2 (12:16→20:36)
[2018-12-26] MEDS: Multivit, Therapeutic 1 TAB PO SCH (12:16)
[2018-12-26] MEDS: Lisinopril 5 MG TAB PO SCH (12:17)
[2018-12-26] MEDS: Senokot S 8.6-50 MG TAB PO SCH ×2 (12:17→20:36)
[2018-12-26] MEDS: Thiamine 100 MG TAB PO SCH (12:17)
[2018-12-26] MEDS: Enoxaparin Sodium 120 MG/0.8 ML SYRINGE SC SCH ×2 (12:19→20:38)
[2018-12-26] MEDS: Atorvastatin Calcium 10 MG TAB PO SCH (20:36)
[2018-12-26] MEDS ORDERED: Iopamidol 370 76% 100 ML VIAL ONE (20:45)
[2018-12-26] MEDS ORDERED: Iopamidol 370 76% 50 ML VIAL FS ONE (20:45)
[2018-12-27 05:47] LABS: #Monocytes 0.6 thou/uL (0.11-0.59); #Neutrophils 3.6 thou/uL (1.40-6.50); %Eosinophils 0.3 % (0.0-10.0); %Lymphocytes 18.6 % (21.0-51.0); %Monocytes 12.1 % (0.0-10.0); Hemoglobin 15.2 g/dL (12.0-16.0); Mean Corpuscular HGB CONC 32.7 g/dL (32.0-36.0); Mean Corpuscular Hemoglobin 34.7 pg (27.0-31.0); Mean Platelet Volume 7.1 fL (7.4-10.4); Platelet Count 177 thou/uL (130-400); RBC Distribution Width 13.6 % (11.5-14.5); Red Blood Cell (RBC) Count 4.36 mill/uL (4.20-5.40); White Blood Cell (WBC) Count 5.1 thou/uL (4.8-10.8)
[2018-12-27 06:11] LABS: Anion Gap 16 mmol/L (10-20); BUN (Urea Nitrogen) 10 mg/dL (9.8-20.1); Calc. Creatinine Clearance 122 mL/min (70-130); Carbon Dioxide 29 mmol/L (23-31); Chloride 92 mmol/L (98-107); Potassium 3.6 mmol/L (3.5-5.1); Sodium 133 mmol/L (136-145)
[2018-12-27 06:12] LABS: ALT (SGPT) 35 U/L (8-55); AST (SGOT) 31 U/L (5-34); Albumin 3.4 g/dL (3.4-4.8); Alkaline Phosphatase 76 U/L (40-110); Bilirubin, Total 2.3 mg/dL (0.2-1.2); Calcium 9.3 mg/dL (7.8-10.44); Estimated GFR-MDRD 76; Globulin 3.3 g/dL (2.4-3.5); Glucose 80 mg/dL (80-115); Protein, Total 6.7 g/dL (6.0-8.3)
[2018-12-27] MEDS: Furosemide 40 MG TAB PO SCH (07:46)
--- NOTE | 2018-12-27 08:31 | PDOC.HOSPP ---
- Subjective Encounter Date: 12/27/18 Encounter Time: 08:28 Subjective: no chest pain or sob - Objective Vital Signs & Weight: Vital Signs (12 hours) Temp Pulse Resp BP Pulse Ox 12/27/18 07:40 98.0 F 73 18 112/71 94 L 12/27/18 07:02 96 12/27/18 04:00 97.8 F 67 17 118/74 96 Weight Weight 224 lb 1 oz I&O: 12/26/18 12/27/18 12/28/18 06:59 06:59 06:59 Intake Total 1300 1610 Output Total 3125 2240 Balance -5321 -6366 Result Diagrams: 12/27/18 04:47 12/27/18 04:47 Hospitalist ROS - Medication Medications: Active Medications Generic Name Dose Route Start Last Admin Trade Name Freq PRN Reason Stop Dose Admin Aspirin 81 mg 12/21/18 09:00 12/26/18 12:15 Ecotrin PO 81 mg DAILY ERIN Administration Atorvastatin Calcium 10 mg 12/20/18 21:00 12/26/18 20:36 Lipitor PO 10 mg HS ERIN Administration Carvedilol 6.25 mg 12/20/18 21:00 12/26/18 20:43 Coreg PO 6.25 mg BID ERIN Administration Enoxaparin Sodium 110 mg 12/20/18 22:00 12/26/18 20:38 Lovenox SC Not Given 1000,2200 ERIN Famotidine 20 mg 12/20/18 21:00 12/26/18 20:36 Pepcid PO 20 mg BID ERIN Administration Folic Acid 1 mg 12/21/18 09:00 12/26/18 12:16 Folvite PO 1 mg DAILY ERIN Administration Furosemide 40 mg 12/27/18 07:30 12/27/18 07:46 Lasix PO 40 mg DAILY-AC ERIN Administration Lisinopril 5 mg 12/21/18 09:00 12/26/18 12:17 Zestril PO 5 mg DAILY ERIN Administration Multivitamins 1 tab 12/21/18 09:00 12/26/18 12:16 Theragran PO 1 tab DAILY ERIN Administration Senna/Docusate Sodium 2 tab 12/20/18 21:00 12/26/18 20:36 Senokot S PO Not Given BID [facility] Sodium Chloride 10 ml 12/20/18 19:30 12/24/18 14:41 Flush - Normal Saline IVF 10 ml PRN PRN Administration Saline Flush Thiamine HCl 100 mg 12/21/18 09:00 12/26/18 12:17 Thiamine PO 100 mg DAILY ERIN Administration - Exam General Appearance: awake alert Neck: no JVD Heart: RRR, no murmur Respiratory: CTAB Gastrointestinal: soft, normal bowel sounds Extremities: 1+ LE edema Hosp A/P (1) CAD (coronary artery disease) Code(s): I25.10 - ATHSCL HEART DISEASE OF [place] CORONARY ARTERY W/O ANG PCTRS Status: Acute Qualifiers: Coronary Disease-Associated Artery/Lesion type: [place] artery [place] vs. transplanted heart: [place] heart Associated angina: without angina Qualified Code(s): I25.10 - Atherosclerotic heart disease of [place] coronary artery without angina pectoris (2) Acute systolic HF (heart failure) Code(s): I50.21 - ACUTE SYSTOLIC (CONGESTIVE) HEART FAILURE Status: Acute (3) Cardiomyopathy Code(s): I42.9 - CARDIOMYOPATHY, UNSPECIFIED Status: Acute Qualifiers: Cardiomyopathy type: unspecified Qualified Code(s): I42.9 - Cardiomyopathy , unspecified (4) Acute kidney failure Status: Resolved Qualifiers: Acute renal failure type: unspecified Qualified Code(s): N17.9 - Acute kidney failure, unspecified (5) Atrial fibrillation Code(s): I48.91 - UNSPECIFIED ATRIAL FIBRILLATION Status: Acute Qualifiers: Atrial fibrillation type: unspecified Qualified Code(s): I48.91 - Unspecified atrial fibrillation (6) HTN (hypertension) Code(s): I10 - ESSENTIAL (PRIMARY) HYPERTENSION Status: Chronic Qualifiers: Hypertension type: essential hypertension Qualified Code(s): I10 - Essential (primary) hypertension - Plan post cath , PCI to LAD cont ASA , plavix cont b-jairo,etc discuss DC planning with Dr Esqueda
[2018-12-27] MEDS: Senokot S 8.6-50 MG TAB PO SCH ×2 (10:46→21:08)
[2018-12-27] MEDS: Multivit, Therapeutic 1 TAB PO SCH (10:46)
[2018-12-27] MEDS: Thiamine 100 MG TAB PO SCH (10:46)
[2018-12-27] MEDS: Folic Acid 1 MG TAB PO SCH (10:47)
[2018-12-27] MEDS: Lisinopril 5 MG TAB PO SCH (10:47)
[2018-12-27] MEDS: Aspirin 81 mg Enteric Coated Tablet PO SCH (10:47)
[2018-12-27] MEDS: Famotidine 20 MG TAB PO SCH ×2 (10:48→21:07)
[2018-12-27] MEDS: Carvedilol 6.25 MG TAB PO SCH ×2 (10:48→21:07)
[2018-12-27] MEDS: Clopidogrel Bisulfate 75 MG TAB PO SCH (10:48)
[2018-12-27] MEDS: Enoxaparin Sodium 120 MG/0.8 ML SYRINGE SC SCH ×2 (10:49→21:08)
--- NOTE | 2018-12-27 18:06 | PDOC.CPN ---
- Subjective Date: 12/27/18 Time: 18:04 Interval history: No new issues. Had her LHC yesterday and underwent stenting to her LAD with BMS but amount of CAD does not account for level of CM. - Review of Systems General: denies: fever/chills, weight/appetite/sleep changes, night sweats, fatigue Respiratory: denies: cough, congestion, shortness of breath, exercise intolerance Cardiovascular: denies: chest pain, palpitation, edema, paroxysmal nocturnal dyspnea, orthopnea Gastrointestinal: denies: nausea, vomiting, diarrhea, constipation, abd pain, GI bleeding Musculoskeletal: denies: pain, tenderness, stiffness, swelling, arthritis/ arthralgias Neurological: denies: numbness, syncope, seizure, weakness - Objective Allergies/Adverse Reactions: Allergies Allergy/AdvReac Type Severity Reaction Status Date / Time procaine [From Novocain] Allergy Severe Swollen Verified 12/20/18 20:07 Lips Visit Medications: Current Medications Albuterol/Ipratropium (Duoneb) 3 ml NEB Q4H PRN PRN Reason: SOB &/or Wheezing Amiodarone HCl (Cordarone) 200 mg PO BID [facility] Aspirin (Ecotrin) 81 mg PO DAILY [facility] Last Admin: 12/27/18 10:47 Dose: 81 mg Atorvastatin Calcium (Lipitor) 10 mg PO HS [facility] Last Admin: 12/26/18 20:36 Dose: 10 mg Calcium Carbonate (Tums) 1,000 mg PO Q4H PRN PRN Reason: Heartburn or Indigestion Carvedilol (Coreg) 6.25 mg PO BID [facility] Last Admin: 12/27/18 10:48 Dose: 6.25 mg Clopidogrel Bisulfate (Plavix) 75 mg PO DAILY [facility] Last Admin: 12/27/18 10:48 Dose: 75 mg Enoxaparin Sodium (Lovenox) 110 mg SC 1000,2200 [facility] Last Admin: 12/27/18 10:49 Dose: 110 mg Famotidine (Pepcid) 20 mg PO BID [facility] Last Admin: 12/27/18 10:48 Dose: 20 mg Folic Acid (Folvite) 1 mg PO DAILY [facility] Last Admin: 12/27/18 10:47 Dose: 1 mg Furosemide (Lasix) 40 mg PO DAILY-AC [facility] Last Admin: 12/27/18 07:46 Dose: 40 mg Lisinopril (Zestril) 5 mg PO DAILY [facility] Last Admin: 12/27/18 10:47 Dose: 5 mg Morphine Sulfate (Morphine) 2 mg SLOW IVP Q4H PRN PRN Reason: Moderate Chest Pain (4-6) Multivitamins (Theragran) 1 tab PO DAILY [facility] Last Admin: 12/27/18 10:46 Dose: 1 tab Ondansetron HCl (Zofran Odt) 4 mg PO Q6H PRN PRN Reason: Nausea/Vomiting Ondansetron HCl (Zofran) 4 mg IVP Q6H PRN PRN Reason: Nausea/Vomiting Senna/Docusate Sodium (Senokot S) 2 tab PO BID [facility] Last Admin: 12/27/18 10:46 Dose: 2 tab Sodium Chloride (Flush - Normal Saline) 10 ml IVF PRN PRN PRN Reason: Saline Flush Last Admin: 12/24/18 14:41 Dose: 10 ml Thiamine HCl (Thiamine) 100 mg PO DAILY [facility] Last Admin: 12/27/18 10:46 Dose: 100 mg Vital Signs & Weight: Vital Signs Temp Pulse Pulse Pulse Resp BP BP 12/27/18 16:24 97.6 F 81 16 12/27/18 12:10 87 83 135/88 114/91 H 12/27/18 12:00 98.1 F 83 16 12/27/18 10:48 12/27/18 07:40 98.0 F 73 18 12/27/18 07:02 BP Pulse Ox Pulse Ox Pulse Ox 12/27/18 16:24 125/90 94 L 12/27/18 12:10 95 97 12/27/18 12:00 116/88 96 12/27/18 10:48 94 L 12/27/18 07:40 112/71 94 L 12/27/18 07:02 96 Weight 224 lb 1 oz - Physical Exam General: alert & oriented x3, no apparent distress HEENT: mucus membranes moist, normocephaly Neck: supple neck, midline trachea Cardiac: irregularly regular Lungs: clear to auscultation Neuro: grossly intact Abdomen: active bowel sounds, soft, non-tender Extremities: no edema Skin: clear Musculoskeletal: no pain - Labs Result Diagrams: 12/27/18 04:47 12/27/18 04:47 Troponin/CKMB CK-MB (CK-2) 6.1 ng/mL (0-6.6) 12/20/18 17:19 Troponin I 0.058 ng/mL (< 0.028) H 12/20/18 17:19 - Telemetry Supraventricular conduction: atrial fibrillation - Assessment/Plan Assessment/Plan: 1. Acute systolic heart failure 2. Dilated CM new onset, EF at 20-25%, non ischemic. 3. Afib rate controlled, new diagnosis 4. Tobacco use. 5. CHADS VASc score of 2 (female, heart failure) 6. CAD, s/p BM to distal LAD, does not account for level of LV dysfunction. PLAN: - Will plan on HERB Cardioversion tomorrow. We spoke about risks and benefits of the procedure and she agrees to proceed. - Will plan on doing tomorrow at noon.
[2018-12-27] MEDS: Atorvastatin Calcium 10 MG TAB PO SCH (21:07)
[2018-12-27] MEDS: Amiodarone 200 MG TAB PO SCH (21:08)
[2018-12-28] MEDS: Furosemide 40 MG TAB PO SCH (07:24)
--- NOTE | 2018-12-28 07:27 | PDOC.HOSPP ---
- Subjective Encounter Date: 12/28/18 Encounter Time: 07:26 Subjective: no chest pain/sob - Objective Vital Signs & Weight: Vital Signs (12 hours) Temp Pulse Resp BP BP BP Pulse Ox 12/28/18 07:10 97.9 F 91 22 H 142/96 H 94 L 12/28/18 04:00 98.8 F 77 18 116/75 93 L 12/27/18 23:28 91 130/78 12/27/18 21:07 152/100 H 12/27/18 20:00 97.4 F L 85 16 152/100 H 100 12/27/18 19:45 100 Weight Weight 224 lb 1 oz I&O: 12/27/18 12/28/18 12/29/18 06:59 06:59 06:59 Intake Total 1610 960 Output Total 3850 1400 Balance -6330 440 Result Diagrams: 12/27/18 04:47 12/27/18 04:47 Hospitalist ROS - Medication Medications: Active Medications Generic Name Dose Route Start Last Admin Trade Name González PRN Reason Stop Dose Admin Amiodarone HCl 200 mg 12/27/18 21:00 12/27/18 21:08 Cordarone PO 200 mg BID ERIN Administration Aspirin 81 mg 12/21/18 09:00 12/27/18 10:47 Ecotrin PO 81 mg DAILY ERIN Administration Atorvastatin Calcium 10 mg 12/20/18 21:00 12/27/18 21:07 Lipitor PO 10 mg HS ERIN Administration Carvedilol 6.25 mg 12/20/18 21:00 12/27/18 21:07 Coreg PO 6.25 mg BID ERIN Administration Clopidogrel Bisulfate 75 mg 12/27/18 09:00 12/27/18 10:48 Plavix PO 75 mg DAILY ERIN Administration Enoxaparin Sodium 110 mg 12/20/18 22:00 12/27/18 21:08 Lovenox SC 110 mg 1000,2200 ERIN Administration Famotidine 20 mg 12/20/18 21:00 12/27/18 21:07 Pepcid PO 20 mg BID ERIN Administration Folic Acid 1 mg 12/21/18 09:00 12/27/18 10:47 Folvite PO 1 mg DAILY ERIN Administration Furosemide 40 mg 12/27/18 07:30 12/27/18 07:46 Lasix PO 40 mg DAILY-AC ERIN Administration Lisinopril 5 mg 12/21/18 09:00 12/27/18 10:47 Zestril PO 5 mg DAILY ERIN Administration Multivitamins 1 tab 12/21/18 09:00 12/27/18 10:46 Theragran PO 1 tab DAILY ERIN Administration Senna/Docusate Sodium 2 tab 12/20/18 21:00 12/27/18 21:08 Senokot S PO Not Given BID ERIN Sodium Chloride 10 ml 12/20/18 19:30 12/24/18 14:41 Flush - Normal Saline IVF 10 ml PRN PRN Administration Saline Flush Thiamine HCl 100 mg 12/21/18 09:00 12/27/18 10:46 Thiamine PO 100 mg DAILY ERIN Administration - Exam Neck: no JVD Heart: irregular Respiratory: CTAB Gastrointestinal: soft, normal bowel sounds Extremities: no edema Hosp A/P (1) CAD (coronary artery disease) Code(s): I25.10 - ATHSCL HEART DISEASE OF [place] CORONARY ARTERY W/O ANG PCTRS Status: Acute Qualifiers: Coronary Disease-Associated Artery/Lesion type: [place] artery [place] vs. transplanted heart: [place] heart Associated angina: without angina Qualified Code(s): I25.10 - Atherosclerotic heart disease of [place] coronary artery without angina pectoris (2) Acute systolic HF (heart failure) Code(s): I50.21 - ACUTE SYSTOLIC (CONGESTIVE) HEART FAILURE Status: Acute (3) Cardiomyopathy Code(s): I42.9 - CARDIOMYOPATHY, UNSPECIFIED Status: Acute Qualifiers: Cardiomyopathy type: unspecified Qualified Code(s): I42.9 - Cardiomyopathy , unspecified (4) Acute kidney failure Status: Resolved Qualifiers: Acute renal failure type: unspecified Qualified Code(s): N17.9 - Acute kidney failure, unspecified (5) Atrial fibrillation Code(s): I48.91 - UNSPECIFIED ATRIAL FIBRILLATION Status: Acute Qualifiers: Atrial fibrillation type: unspecified Qualified Code(s): I48.91 - Unspecified atrial fibrillation (6) HTN (hypertension) Code(s): I10 - ESSENTIAL (PRIMARY) HYPERTENSION Status: Chronic Qualifiers: Hypertension type: essential hypertension Qualified Code(s): I10 - Essential (primary) hypertension - Plan post cath , PCI to LAD cont ASA , plavix cont b-jairo,etc planned HERB/ CV today- FU post
[2018-12-28] MEDS: Clopidogrel Bisulfate 75 MG TAB PO SCH (09:26)
[2018-12-28] MEDS: Senokot S 8.6-50 MG TAB PO SCH ×2 (09:27→19:57)
[2018-12-28] MEDS: Famotidine 20 MG TAB PO SCH ×2 (09:27→19:58)
[2018-12-28] MEDS: Folic Acid 1 MG TAB PO SCH (09:27)
[2018-12-28] MEDS: Multivit, Therapeutic 1 TAB PO SCH (09:27)
[2018-12-28] MEDS: Amiodarone 200 MG TAB PO SCH ×2 (09:28→19:57)
[2018-12-28] MEDS: Thiamine 100 MG TAB PO SCH (09:28)
[2018-12-28] MEDS: Carvedilol 6.25 MG TAB PO SCH ×2 (09:29→19:57)
[2018-12-28] MEDS: Lisinopril 5 MG TAB PO SCH (09:29)
[2018-12-28] MEDS: Aspirin 81 mg Enteric Coated Tablet PO SCH (09:29)
[2018-12-28] MEDS: Enoxaparin Sodium 120 MG/0.8 ML SYRINGE SC SCH (09:30)
[2018-12-28] MEDS ORDERED: PROPOFOL 20 ML ONE (14:11)
[2018-12-28] MEDS ORDERED: PROPOFOL 0 ML ONE (16:30)
--- NOTE | 2018-12-28 17:51 | PDOC.EVN ---
Event Note - Event Note Event Note: POST HERB/CV- now in RSR. VS sable. Pt alert, no pain,sob, etc
--- NOTE | 2018-12-28 19:28 | OP ---
DATE OF PROCEDURE: 12/28/18 PREPROCEDURE DIAGNOSIS: 1. Atrial fibrillation with RVR. 2. Cardiomyopathy. PROCEDURE: Cardioversion. SUMMARY: The patient is a pleasant 63-year-old white female who comes to the hospital for new onset cardiomyop athy and onset of A-fib. HERB cardioversion was planned. She had a HERB prior and was cleared for this. Please see HERB report for details. After adequate sedation was achieved by the anesthesiology department, one single synchronized shock was delivered at 100 joules successfully converting her from atrial fibrillation to sinus rhythm. The patient tolerated the procedure well. RECOMMENDATIONS: 1. Continued full anticoagulation and antiarrhythmic therapy. 2. Discharge home tomorrow.
--- NOTE | 2018-12-28 19:46 | ECHO ---
DATE OF SERVICE: 12/28/18 PREPROCEDURE DIAGNOSIS: Atrial fibrillation with RVR. PROCEDURES PERFORMED: Transesophageal echocardiogram. The Anesthesiology department provided with sedation for the patient. Please see their notes for det ails. After adequate sedation was achieved, transesophageal probe was inserted into the mouth and into the esophagus. Multiplanar views were obtained. Left ventricle is normal size, normal wall thickness. Systolic function is reduced. EF estimated at 40-45%. Left atrium is dilated. Left atrial appendage is a large appendage with spontaneous echo contrast but no evidence of mass or thrombus. Right atrium is mildly dilated. No mass or thrombus. The right ventricle is normal size, normal systolic function. Aortic valve is structurally normal. No stenosis or regurgitation. Mitral valve has mitral annular calcification. No stenosis. There is moderate to severe MR. Seems fun ctional. Tricuspid valve is structurally normal. There is mild TR. No stenosis. Pulmonary valve is structurally normal. No stenosis or regurgitation. Thoracic aorta has grade II/V atherosclerotic disease. CONCLUSIONS: 1. LV function at 40-45%. 2. Mild aneurysmal interatrial septum but no evidence of shunting by color Doppler. 3. Biatrial enlargement. 4. Mild TR. 5. Mitral annular calcifications. 6. Moderate to severe MR. 7. No evidence of mass or thrombus in the left atrial appendage. There is spontaneous echo contrast and reduced velocities.
[2018-12-28] MEDS: Apixaban 5 MG TAB PO SCH (19:57)
[2018-12-28] MEDS: Atorvastatin Calcium 10 MG TAB PO SCH (19:57)
--- NOTE | 2018-12-29 08:13 | PDOC.HOSPP ---
- Subjective Encounter Date: 12/29/18 Encounter Time: 08:11 Subjective: no chest pain or sob - Objective Vital Signs & Weight: Vital Signs (12 hours) Temp Pulse Resp BP BP Pulse Ox 12/29/18 04:00 98.4 F 72 20 110/67 93 L 12/28/18 23:45 98.3 F 70 20 116/77 92 L Weight Weight 222 lb 4.8 oz I&O: 12/28/18 12/29/18 12/30/18 06:59 06:59 06:59 Intake Total 1440 1160 Output Total 1500 3200 Balance -60 -2039 Result Diagrams: 12/27/18 04:47 12/27/18 04:47 Hospitalist ROS - Medication Medications: Active Medications Generic Name Dose Route Start Last Admin Trade Name Freq PRN Reason Stop Dose Admin Amiodarone HCl 400 mg 12/28/18 21:00 12/28/18 19:57 Cordarone PO 400 mg BID ERIN Administration Apixaban 5 mg 12/28/18 21:00 12/28/18 19:57 Eliquis PO 5 mg BID ERIN Administration Aspirin 81 mg 12/21/18 09:00 12/28/18 09:29 Ecotrin PO 81 mg DAILY ERIN Administration Atorvastatin Calcium 10 mg 12/20/18 21:00 12/28/18 19:57 Lipitor PO 10 mg HS ERIN Administration Carvedilol 6.25 mg 12/20/18 21:00 12/28/18 19:57 Coreg PO 6.25 mg BID ERIN Administration Clopidogrel Bisulfate 75 mg 12/27/18 09:00 12/28/18 09:26 Plavix PO 75 mg DAILY ERIN Administration Famotidine 20 mg 12/20/18 21:00 12/28/18 19:58 Pepcid PO 20 mg BID ERIN Administration Folic Acid 1 mg 12/21/18 09:00 12/28/18 09:27 Folvite PO 1 mg DAILY ERIN Administration Furosemide 40 mg 12/27/18 07:30 12/28/18 07:24 Lasix PO 40 mg DAILY-AC ERIN Administration Lisinopril 5 mg 12/21/18 09:00 12/28/18 09:29 Zestril PO 5 mg DAILY ERIN Administration Multivitamins 1 tab 12/21/18 09:00 12/28/18 09:27 Theragran PO 1 tab DAILY ERIN Administration Senna/Docusate Sodium 2 tab 12/20/18 21:00 12/28/18 19:57 Senokot S PO 2 tab BID ERIN Administration Sodium Chloride 10 ml 12/20/18 19:30 12/24/18 14:41 Flush - Normal Saline IVF 10 ml PRN PRN Administration Saline Flush Thiamine HCl 100 mg 12/21/18 09:00 12/28/18 09:28 Thiamine PO 100 mg DAILY ERIN Administration - Exam Neck: no JVD Heart: RRR, no murmur Respiratory: CTAB Gastrointestinal: soft, normal bowel sounds Extremities: no edema Hosp A/P (1) CAD (coronary artery disease) Code(s): I25.10 - ATHSCL HEART DISEASE OF [place] CORONARY ARTERY W/O ANG PCTRS Status: Acute Qualifiers: Coronary Disease-Associated Artery/Lesion type: [place] artery [place] vs. transplanted heart: [place] heart Associated angina: without angina Qualified Code(s): I25.10 - Atherosclerotic heart disease of [place] coronary artery without angina pectoris (2) Acute systolic HF (heart failure) Code(s): I50.21 - ACUTE SYSTOLIC (CONGESTIVE) HEART FAILURE Status: Acute (3) Cardiomyopathy Code(s): I42.9 - CARDIOMYOPATHY, UNSPECIFIED Status: Acute Qualifiers: Cardiomyopathy type: unspecified Qualified Code(s): I42.9 - Cardiomyopathy , unspecified (4) Acute kidney failure Status: Resolved Qualifiers: Acute renal failure type: unspecified Qualified Code(s): N17.9 - Acute kidney failure, unspecified (5) Atrial fibrillation Code(s): I48.91 - UNSPECIFIED ATRIAL FIBRILLATION Status: Acute Qualifiers: Atrial fibrillation type: unspecified Qualified Code(s): I48.91 - Unspecified atrial fibrillation (6) HTN (hypertension) Code(s): I10 - ESSENTIAL (PRIMARY) HYPERTENSION Status: Chronic Qualifiers: Hypertension type: essential hypertension Qualified Code(s): I10 - Essential (primary) hypertension - Plan still in RSR cont current meds discuss DC with cadiology
[2018-12-29 08:30] VITALS: TEMP 98.1
[2018-12-29 08:34] VITALS: BP 135/88
[2018-12-29] MEDS: Carvedilol 6.25 MG TAB PO SCH (08:48)
[2018-12-29] MEDS: Thiamine 100 MG TAB PO SCH (08:48)
[2018-12-29] MEDS: Aspirin 81 mg Enteric Coated Tablet PO SCH (08:48)
[2018-12-29] MEDS: Senokot S 8.6-50 MG TAB PO SCH (08:48)
[2018-12-29] MEDS: Lisinopril 5 MG TAB PO SCH (08:49)
[2018-12-29] MEDS: Clopidogrel Bisulfate 75 MG TAB PO SCH (08:49)
[2018-12-29] MEDS: Multivit, Therapeutic 1 TAB PO SCH (08:49)
[2018-12-29] MEDS: Famotidine 20 MG TAB PO SCH (08:49)
[2018-12-29] MEDS: Furosemide 40 MG TAB PO SCH (08:49)
[2018-12-29] MEDS: Folic Acid 1 MG TAB PO SCH (08:49)
[2018-12-29] MEDS: Apixaban 5 MG TAB PO SCH (08:49)
[2018-12-29] MEDS: Amiodarone 200 MG TAB PO SCH (08:49)
--- NOTE | 2018-12-29 10:01 | DIS ---
DATE OF ADMISSION: 12/20/2018 DATE OF DISCHARGE: 12/29/2018 TRANSFER OF CARE PRIMARY CARE PROVIDER: She was in [facility] Call [facility]mission, is now Dr. Dao Person. DISPOSITION: Discharged home. FINAL DIAGNOSES: Acute systolic congestive heart failure, cardiomyopathy, atrial fibrillation, hypertension, coronary artery disease, type 2 diabetes, and acute kidney failure, resolved. DISCHARGE MEDICATIONS: 1. Amiodarone 400 mg b.i.d. 2. Eliquis 5 mg b.i.d. 3. Lipitor 10 mg a day. 4. Coreg 6.25 mg twice a day. 5. Plavix 75 mg a day. 6. Lasix 40 mg a day. 7. Zestril 5 mg a day. 8. Aspirin 81 mg a day. ALLERGIES: NOVOCAIN. PENDING AT TIME OF DISCHARGE: Nothing. CODE STATUS: Full. DIET: Heart healthy, low-salt. HOSPITAL COURSE: [facility] with shortness of breath, transferred from [place]; history of hypertension, noncompliance, taking no medications. She is found to be in acute systolic heart failure, acute kidney injury. Evaluation of chest x-ray showed bilateral pleural effusions, left greater than right. PERTINENT LABORATORY: CBC; white count 6.5, hemoglobin 17.1, and platelet count 172,000 with microcytic indices. Sodium 130, potassium 4.9, chloride 96, CO2 of 18, BUN 19, and creatinine 1.25. Her creatinine normalized during her hospital stay. Her BNP was 1774. She was seen in consultation by Dr. Henri Esqueda. She underwent cardiac cath, which revealed multivessel disease. She had a severe distal LAD, which is stented. She was in atrial fibrillation. She went to transesophageal echo, which revealed no clot in the atria. She underwent DC cardioversion into regular sinus rhythm. The patient is currently stable. Vital signs; blood pressure 110/67, pulse 72, and respirations are 20. Cardiorespiratory exam is unremarkable. She is being discharged on the afore medications. She will see Dr. Person within one week for followup. She will see Dr. Esqueda in followup within the month as mentioned before. PROCEDURES: Cardiac cath with PCI and transesophageal echocardiogram with DC cardioversion. Job ID: [id number]
--- NOTE | 2018-12-30 09:57 | EKG ---
Test Reason : POST STENT Blood Pressure : / mmHG Vent. Rate : 074 BPM Atrial Rate : 416 BPM P-R Int : 000 ms QRS Dur : 100 ms QT Int : 376 ms P-R-T Axes : 000 033 133 degrees QTc Int : 417 ms Atrial fibrillation Nonspecific T wave abnormality , probably digitalis effect Abnormal ECG When compared with ECG of 20-DEC-2018 16:15, No significant change was found Confirmed by AUGIE RUSSELL, ABHISHEK ([id number]) on 12/30/2018 9:57:13 AM Referred By: HORACE Confirmed By:ABHISHEK GHOSH MD
--- NOTE | 2018-12-30 10:04 | EKG ---
Test Reason : ROUTINE Blood Pressure : / mmHG Vent. Rate : 071 BPM Atrial Rate : 094 BPM P-R Int : 000 ms QRS Dur : 104 ms QT Int : 292 ms P-R-T Axes : 000 017 210 degrees QTc Int : 317 ms Atrial fibrillation with premature ventricular or aberrantly conducted complexes Low voltage QRS Nonspecific T wave abnormality Abnormal ECG Confirmed by ABHISHEK GHOSH MD ([id number]) on 12/30/2018 10:03:48 AM Referred By: Confirmed By:ABHISHEK GHOSH MD
== END 2018-12-29 11:36 | disposition home or self-care (01) | DRG 248 ==
LOC: ERS 15:48 → OBSVTOIN 19:00 → 2SW 19:00 → 2NO 12-21 21:57
PROVIDERS: ADMIT Internal Medicine; ATTEND Internal Medicine
PROC: 02703DZ Dilation of Coronary Artery, One Artery with Intraluminal Device, Percutaneous Approach (ICD-10-PCS; principal; 2018-12-26)
PROC: 4A023N7 Measurement of Cardiac Sampling and Pressure, Left Heart, Percutaneous Approach (ICD-10-PCS; 2018-12-26)
PROC: B2111ZZ Fluoroscopy of Multiple Coronary Arteries using Low Osmolar Contrast (ICD-10-PCS; 2018-12-26)
PROC: B2151ZZ Fluoroscopy of Left Heart using Low Osmolar Contrast (ICD-10-PCS; 2018-12-26)
PROC: B24BZZ4 Ultrasonography of Heart with Aorta, Transesophageal (ICD-10-PCS; 2018-12-28)
PROC: 5A2204Z Restoration of Cardiac Rhythm, Single (ICD-10-PCS; 2018-12-28)
DX: I13.0 Hypertensive heart and chronic kidney disease with heart failure and stage 1 through stage 4 chronic kidney disease, or unspecified chronic kidney disease (principal); I50.23 Acute on chronic systolic (congestive) heart failure; I21.A1 Myocardial infarction type 2; N17.9 Acute kidney failure, unspecified; E87.1 Hypo-osmolality and hyponatremia; I42.0 Dilated cardiomyopathy; I25.10 Atherosclerotic heart disease of native coronary artery without angina pectoris; I48.91 Unspecified atrial fibrillation; F10.20 Alcohol dependence, uncomplicated; N18.3 Chronic kidney disease, stage 3 (moderate); F17.200 Nicotine dependence, unspecified, uncomplicated; E11.22 Type 2 diabetes mellitus with diabetic chronic kidney disease; Z88.8 Allergy status to other drugs, medicaments and biological substances; Z79.899 Other long term (current) drug therapy; Z79.82 Long term (current) use of aspirin; Z79.01 Long term (current) use of anticoagulants; Z91.14 Patient's other noncompliance with medication regimen
CPT/HCPCS: 36415; 36416; 71046; 76700; 80048; 80053; 80061; 80162; 82553; 83036; 83735; 83880; 84100; 84439; 84443; 84481; 84484; 85025; 85347; 92928; 92960; 93005; 93010; 93306; 93312; 93458; 93798; 94640; 99152; C1769; C1876; J1650; J1940; J2250; J2704; J3010; J7620; Q9967

== ENCOUNTER 2023-05-19 | Observation (INO) | payer MEDICARE, OTHER | END 2023-05-20 13:14 | disposition home or self-care (01) | PROVIDERS: ADMIT Internal Medicine Cardiovascular Disease | PROC: 02583ZZ Destruction of Conduction Mechanism, Percutaneous Approach (ICD-10-PCS; principal; 2023-05-19) | PROC: 02K83ZZ Map Conduction Mechanism, Percutaneous Approach (ICD-10-PCS; 2023-05-19) | PROC: 4A023FZ Measurement of Cardiac Rhythm, Percutaneous Approach (ICD-10-PCS; 2023-05-19) | PROC: 4A0234Z Measurement of Cardiac Electrical Activity, Percutaneous Approach (ICD-10-PCS; 2023-05-19) | DX: I48.19 Other persistent atrial fibrillation (principal); I48.0 Paroxysmal atrial fibrillation; I25.10 Atherosclerotic heart disease of native coronary artery without angina pectoris; E66.01 Morbid (severe) obesity due to excess calories; I50.32 Chronic diastolic (congestive) heart failure; Z95.5 Presence of coronary angioplasty implant and graft; Z87.891 Personal history of nicotine dependence; Z68.38 Body mass index [BMI] 38.0-38.9, adult; Z88.4 Allergy status to anesthetic agent; Z79.899 Other long term (current) drug therapy; Z79.82 Long term (current) use of aspirin; Z79.01 Long term (current) use of anticoagulants ==